=== PATIENT | female | born 1975 | race Hispanic/Latino ===

== ENCOUNTER 2018-07-28 20:11 | Emergency (ER) | payer MEDICAID ==
[2018-07-28 20:19] VITALS: BP 123/80; PULSE 70; RESP 18; TEMP 97.8; O2SAT 100
--- NOTE | 2018-07-28 20:26 | ED PDOC ---
HPI: General Adult Time Seen by Provider: 07/28/18 20:23 Chief Complaint (Nursing): ENT Problem Chief Complaint (Provider): Ear Pain History Per: Patient History/Exam Limitations: no limitations Onset/Duration Of Symptoms: Days (x2 weeks) Current Symptoms Are (Timing): Still Present Additional Complaint(s): 43 year old female presents to the ED for evaluation of muffled hearing to her left ear for the past two weeks, stating it feels as if she just got off a plane. Pt notes using an OTC ear cleaning kit without any relief. Denies any other complaints, but reports having meniere's disease and has frequent ear issues. PMD: none provided Past Medical History Reviewed: Historical Data, Nursing Documentation, Vital Signs Vital Signs: Last Vital Signs Temp 97.8 F 07/28/18 20:18 Pulse 70 07/28/18 20:18 Resp 18 07/28/18 20:18 BP 123/80 07/28/18 20:18 Pulse Ox 100 07/28/18 20:18 - Medical History PMH: Anxiety Other PMH: meniere's disease - Surgical History Surgical History: No Surg Hx - Family History Family History: States: Unknown Family Hx - Home Medications Home Medications: Ambulatory Orders Medication Instructions Recorded Acetaminophen with Codeine 1 tab PO Q6 PRN #10 tab 09/02/16 [Tylenol with Codeine No. 3 300 mg-30 mg] Ciprofloxacin/Dexamethasone 4 drop OS BID #5 ml 07/28/18 [Ciprodex Otic] - Allergies Allergies/Adverse Reactions: Allergies Allergy/AdvReac Type Severity Reaction Status Date / Time No Known Allergies Allergy Verified 07/28/18 20:17 Review of Systems ROS Statement: Except As Marked, All Systems Reviewed And Found Negative ENT: Positive for: Other (muffled left ear) Physical Exam - Reviewed Nursing Documentation Reviewed: Yes Vital Signs Reviewed: Yes - Physical Exam Appears: Positive for: No Acute Distress Head Exam: Positive for: ATRAUMATIC, NORMOCEPHALIC ENT: Positive for: TM Is/Are (bilateral: TMs intact and visible with positive light reflection; canals with no injection, edema, or erythema) Cardiovascular/Chest: Positive for: Regular Rate, Rhythm Respiratory: Positive for: Normal Breath Sounds. Negative for: Respiratory Distress - ECG O2 Sat by Pulse Oximetry: 100 (RA) Pulse Ox Interpretation: Normal Medical Decision Making Medical Decision Making: Time: 2029 Initial Impression: normal ear exam Initial Plan: --Pt stable for d/c with benign physical exam Scribe Attestation: Documented by Amie Cuello, acting as a scribe for Riley Castro PA-C. Provider Scribe Attestation: All medical record entries made by the Scribe were at my direction and personally dictated by me. I have reviewed the chart and agree that the record accurately reflects my personal performance of the history, physical exam, medical decision making, and the department course for this patient. I have also personally directed, reviewed, and agree with the discharge instructions and disposition. Disposition - Clinical Impression Clinical Impression: Otitis externa, Left ear pain - Disposition Disposition: Routine/Home Disposition Time: 20:38 Condition: STABLE Prescriptions: Ciprofloxacin/Dexamethasone [Ciprodex Otic] 4 drop OS BID #5 ml Instructions: Outer Ear Infection, Outer Ear Infection (DC) Forms: [facility] [employer] (Georgian)
== END 2018-07-28 21:13 | disposition home or self-care (01) ==
LOC: H.ER 20:11
DX: H60.92 Unspecified otitis externa, left ear (principal)